=== PATIENT | female | born 1940 | race Caucasian/White ===

== ENCOUNTER 2016-11-02 08:54 | Observation (INO) | payer OTHER ==
[2016-11-02] MEDS ORDERED: MECLIZINE HCL 25 MG TAB PO ONE (09:41)
[2016-11-02] MEDS ORDERED: NS 1,000 ML IV ONE (09:41)
--- NOTE | 2016-11-02 09:43 | UCPHY ---
H & P Patient Type: Established Chief Complaint Nursing Narrative: Pt with 9 days of feeling bad. Had sinus drainage and went to walk in clinic after day 2 and placed on amoxicillin.Yook that for 3 days and had diarrhea stopped and still not feeling well . now has dizzy off balance feeling and decreased appetite. and nausea . Fell two days ago in [place] . Denies LOC . Time Seen by Provider: 11/02/16 09:26 HPI/ROS: CHIEF COMPLAINT: Feeling poorly, dizzy, fell HISTORY OF PRESENT ILLNESS: 75-year-old female presents reporting that 9 days ago she developed which she thought was a sinus infection. She had significant nasal drainage and headache. She saw a physician at urgent care was placed on amoxicillin. However, she developed abdominal upset and diarrhea. She stop taking the amoxicillin. Her symptoms have continued. She reported an episode of vertigo several days ago. She was seen at [facility] 2 days ago and diagnosed with a viral infection. She presents today reporting that she fell 2 days ago, the evening after being seen at [facility]. She struck her head. She reports feeling very dizzy, off balance, shaky, with moderate abdominal upset. Denies any chest pain or shortness of breath. Denies any palpitations. On no blood thinners. No loss of consciousness. reports she has been acting normally. No urinary complaints. REVIEW OF SYSTEMS: Aside from elements discussed in the HPI, a comprehensive 10-point review of systems was reviewed and is negative. PAST MEDICAL HISTORY: Hypertension, pre diabetes. GERD. SOCIAL HISTORY: Patient is . VITAL SIGNS Reviewed by me. GENERAL: Pleasant, elderly. Resting comfortably. Somewhat tearful. HEENT: Atraumatic. Eyes: No icterus, no injection. No tenderness to percussion over the sinuses. TMs are clear bilaterally. Mouth: moist mucous membranes. No erythema or lesions. Neck: supple with no adenopathy. LUNGS: Clear to auscultation bilaterally, no wheezes, rhonchi or rales. CARDIAC: Regular rate and rhythm, no rubs, murmurs or gallops. ABDOMEN: Soft, mild epigastric tenderness to deep palpation. No guarding or rebound. No distension. BACK: No CVA tenderness. EXTREMITIES: No trauma. No edema. Range of motion is normal throughout. NEURO: Alert and oriented, grossly nonfocal. SKIN: Warm and dry, no rash. PSYCHIATRIC: Normal mentation, no agitation. Source: Patient - Personal History Current Tetanus Diphtheria and Acellular Pertussis (TDAP): Yes - Medical/Surgical History Hx Asthma: No Hx Chronic Respiratory Disease: No Hx Diabetes: No Hx Cardiac Disease: Yes Hx Renal Disease: No Hx Cirrhosis: No Hx Alcoholism: No Hx HIV/AIDS: No Hx Splenectomy or Spleen Trauma: No Other PMH: TUBAL PREG X 2. C SECTIONs. PRE DIABETEIC. HTN. Hysterectomy - Family History Significant Family History: No pertinent family hx - Social History Smoking Status: Never smoked Constitutional: Initial Vital Signs Temperature (C) 37 C 11/02/16 09:21 Heart Rate 80 11/02/16 09:21 Respiratory Rate 16 11/02/16 09:21 Blood Pressure 156/75 H 11/02/16 09:21 O2 Sat (%) 98 11/02/16 09:21 O2 Delivery Mode Room Air Allergies/Adverse Reactions: Sulfa (Sulfonamide Antibiotics) Allergy (Verified 11/02/16 09:26) Home Medications: Medication Instructions Recorded Lisinopril/Hctz 20/12.5MG 1 ea PO DAILY 11/03/13 [Zestoretic/Prinzide 20/12.5MG (*)] Metoprolol Succinate Xr [Toprol Xl 25 mg PO DAILY 11/03/13 25 mg (*)] Simvastatin [Zocor] 20 mg PO HS 11/03/13 metFORMIN HCL [Metformin HCl ER] 1,000 mg PO DAILY 11/03/13 Ascorbic Acid [Vitamin C 500 mg 500 mg PO DAILY 11/02/16 (*)] Herbals/Supplements -Info Only 1 ea PO DAILY 11/02/16 LORazepam [Ativan (*)] 1 mg PO HS PRN 11/02/16 Multivitamins [Multivitamin (*)] 1 each PO DAILY 11/02/16 Pantoprazole Sodium [Protonix 40mg 40 mg PO DAILY 11/02/16 (*)] Medical Decision Making - Diagnostics EKG Interpretation: 12-LEAD EKG: Please see the full report in [facility]. My interpretation: Sinus rhythm, no ischemic changes Imaging: Imaging Impressions Chest X-Ray 11/02/16 09:41 Impression: No pneumonia. Head CT 11/02/16 09:41 Impression: 1. No acute intracranial findings. 2. Diffuse cerebral atrophy with scattered periventricular and subcortical low attenuation consistent with chronic microvascular ischemic gliosis. 3. Mild mucous membrane thickening in the sinuses without definite evidence of acute sinusitis. Findings discussed with Dulce Maria Banks 11/02/2016 at 10:22 hours. ED Course/Re-evaluation: 75-year-old female reporting dizziness, sinus congestion, and a syncopal episode after being ill with an upper respiratory infection for 9 days and developing diarrhea. Evaluation the emergency department is remarkable for sodium of 121 and chloride of 87. Renal functions are normal. EKG is nonischemic. Troponin is negative. Head CT demonstrates no intracranial hemorrhage. No signs significant sinus disease. Chest x-ray is negative. Patient's course was discussed with the hospitalist service. Patient will be admitted to [facility] bed, Dr. Torres admitting. Patient prefers to be transferred by POV. Her family understands the possibility of continued altered mental status and potential seizure EN route. They are comfortable taking her by POV. Patient was discharged to proceed directly to [facility]. She will be admitted to the 3rd floor where she has a bed a sign.. Differential Diagnosis: Differential diagnosis of the patient's dizziness was considered including but not limited to peripheral and central causes of vertigo, cardiac arrhythmias, cardiac ischemia, electrolyte disturbances, neurologic causes, orthostatic causes including dehydration, and blood loss. Consult/Admit Bed Type: Dr. Torres, [facility] - [facility] Laboratory Results: Laboratory Results 11/02/16 10:02 11/02/16 10:02 11/02/16 11/02/16 11/02/16 10:04 10:02 10:02 WBC 7.57 10^3/uL 10^3/uL (3.80-9.50) RBC 4.55 10^6/uL 10^6/uL (4.18-5.33) Hgb 13.5 g/dL g/dL (12.6-16.3) Hct 36.8 % L % (38.0-47.0) MCV 80.9 fL L fL (81.5-99.8) MCH 29.7 pg pg (27.9-34.1) MCHC 36.7 g/dL g/dL (32.4-36.7) RDW 12.1 % % (11.5-15.2) Plt Count 389 10^3/uL 10^3/uL (150-400) MPV 9.6 fL fL (8.7-11.7) Neut % (Auto) 72.9 % % (39.3-74.2) Lymph % (Auto) 19.4 % % (15.0-45.0) [place] % (Auto) 6.2 % % (4.5-13.0) Eos % (Auto) 0.8 % % (0.6-7.6) Baso % (Auto) 0.4 % % (0.3-1.7) Nucleat RBC Rel Count 0.0 % % (0.0-0.2) Absolute Neuts (auto) 5.52 10^3/uL 10^3/uL (1.70-6.50) Absolute Lymphs (auto) 1.47 10^3/uL 10^3/uL (1.00-3.00) Absolute Monos (auto) 0.47 10^3/uL 10^3/uL (0.30-0.80) Absolute Eos (auto) 0.06 10^3/uL 10^3/uL (0.03-0.40) Absolute Basos (auto) 0.03 10^3/uL 10^3/uL (0.02-0.10) Absolute Nucleated RBC 0.00 10^3/uL 10^3/uL (0-0.01) Immature Gran % 0.3 % % (0.0-1.1) Immature Gran # 0.02 10^3/uL 10^3/uL (0.00-0.10) Sodium 121 mEq/L L mEq/L (134-144) Potassium 3.6 mEq/L mEq/L (3.5-5.2) Chloride 84 mEq/L L mEq/L (97-110) Carbon Dioxide 23 mEq/l mEq/l (22-31) Anion Gap 14 mEq/L mEq/L (8-16) BUN 12 mg/dL mg/dL (7-23) Creatinine 0.7 mg/dL mg/dL (0.6-1.0) Estimated GFR > 60 Glucose 131 mg/dL H mg/dL (70-100) Calcium 9.4 mg/dL mg/dL (8.5-10.4) Troponin I < 0.012 ng/mL ng/mL (0-0.034) Medications Given: Discontinued Medications Sodium Chloride (Ns) 1,000 mls @ 0 mls/hr IV ONCE ONE PRN Reason: Wide Open Stop: 11/02/16 09:42 Last Admin: 11/02/16 10:02 Dose: 1,000 mls Meclizine HCl (Meclizine Hcl) 25 mg PO EDNOW ONE Stop: 11/02/16 09:42 Last Admin: 11/02/16 10:00 Dose: 25 mg Departure - Departure Disposition: [facility] In[facility] Acute Clinical Impression: Hyponatremia, Dizziness Syncope Qualifiers: Syncope type: unspecified Qualified Code(s): R55 - Syncope and collapse Condition: Fair - PQRS PQRS Measurement: 134: Depression screening and followup, PRIME MD-PHQ2 (12 years and older) Over the last 2 weeks, how often have you been bothered by any of the following problems? 1. Feeling down, depressed, or hopeless? 2. Little interest or pleasure in doing things? Patient answered no to both 1 and 2 130: Documentation of medications. Reviewed all patient medications, doses, route and frequency. 226: Do you smoke? No. 47: 65 and older: Advanced care planning. Patient designates surrogate decision maker as spouse. 51: 18 years old and older with diagnosis of COPD, spirometry performance. Patient has no history of COPD 52: 18 years old and older with COPD and symptoms of COPD or FEV1<60% predicted prescribed a B Agonist. Patient has no history of COPD
[2016-11-02 10:08] LABS: % IMMATURE GRANULYOCYTES 0.3 % (0.0-1.1); ABSOLUTE IMMATURE GRANULOCYTES 0.02 10^3/uL (0.00-0.10); ADD DIFF? NO; ADD MORPH? NO; ADD SCAN? NO; ATYPICAL LYMPHOCYTE FLAG 10 (0-99); FRAGMENT RBC FLAG 0 (0-99); HEMATOCRIT 36.8 % (38.0-47.0); HEMOGLOBIN 13.5 g/dL (12.6-16.3); LEFT SHIFT FLG 0 (0-99); LIPEMIA HEMOLYSIS FLAG 90 (0-99); MEAN CELL HEMOGLOBIN 29.7 pg (27.9-34.1); MEAN CELL HEMOGLOBIN CONCENTR. 36.7 g/dL (32.4-36.7); MEAN CELL VOLUME 80.9 fL (81.5-99.8); MEAN PLATELET VOLUME 9.6 fL (8.7-11.7); PLATELET CLUMPS FLAG 0 (0-99); PLATELET COUNT 389 10^3/uL (150-400); RED BLOOD CELL COUNT 4.55 10^6/uL (4.18-5.33); RED CELL DISTRIBUTION WIDTH 12.1 % (11.5-15.2)
[2016-11-02 10:22] LABS: ANION GAP 14 mEq/L (8-16); CALCIUM 9.4 mg/dL (8.5-10.4); CARBON DIOXIDE 23 mEq/l (22-31); CHLORIDE 84 mEq/L (97-110); CREATININE 0.7 mg/dL (0.6-1.0); GLOMERULAR FILTRATION RATE > 60; GLUCOSE 131 mg/dL (70-100); POTASSIUM 3.6 mEq/L (3.5-5.2); SODIUM 121 mEq/L (134-144)
--- NOTE | 2016-11-02 10:58 | CPEKG ---
Heart Rate: 77 RR Interval: 779 P-R Interval: 212 QRSD Interval: 90 QT Interval: 408 QTC Interval: 462 P Savage: 27 QRS Savage: 10 T Wave Savage: 38 EKG Severity - BORDERLINE ECG - EKG Impression: SINUS RHYTHM EKG Impression: ATRIAL PREMATURE COMPLEX EKG Impression: PROBABLE LEFT ATRIAL ABNORMALITY Electronically Signed By: Willian Moore 03-Nov-2016 12:47:44
[2016-11-02] MEDS: NS 1,000 ML IV SCH ×2 (11:15→20:14)
[2016-11-02] MEDS ORDERED: ONDANSETRON 4 MG/2 ML VIAL IVP PRN (14:13)
[2016-11-02] MEDS ORDERED: ACETAMINOPHEN 325 MG TAB PO PRN (14:13)
[2016-11-02] MEDS ORDERED: ALBUTEROL 3 ML DEYVIAL IH PRN (14:13)
[2016-11-02] MEDS ORDERED: ZOLPIDEM TARTRATE 5 MG TAB PO PRN (14:13)
[2016-11-02] MEDS ORDERED: ONDANSETRON DISINTEGRATING 4 MG TAB PO PRN (14:13)
--- NOTE | 2016-11-02 14:40 | GHP ---
[f rep st] HISTORY AND PHYSICAL DATE OF ADMISSION: 11/02/2016 CHIEF COMPLAINT: Weakness and hyponatremia. 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 Approximately 6 days PRIVACY ATTORNEY she [facility] and placed on a course of amoxicillin, which she took for 3 days and then developed diarrh ea with a loss of appetite. She stopped the amoxicillin, which then stopped the diarrhea for approx imately 2 days. Then one day PRIVACY ATTORNEY she had the return of diarrhea with 2-3 loose stools on the evenin g and day before admission. Throughout this time she has had a loss of appetite, and has only been drinking clear water and eating small amounts of food. The mucopurulent drainage seems to have reso lved regarding her sinuses, but she has continued to be weak. Two days PRIVACY ATTORNEY she had vertiginous symp toms with spinning and fell forward without a loss of consciousness. She grazed her head on the tea e of a cabinet and then hit the left side of her face on the floor. There was no loss of consciousn ess, as she called for her immediately to assist her. He found her weak and placed her back in bed. That incident was 2 days PRIVACY ATTORNEY. Since that time she has had no recurrence of that symptom, but she continues to be weak. She denies having any chest pain, shortness of breath, orthopnea, PND, or any sense of excessively r apid heartbeat or slow heartbeats. Additionally there has been no shortness of breath, although she does admit that during the time of the sinus infection she did have a cough which was also producti ve of mucopurulent material, but did not have shortness of breath or hemoptysis. The patient suffer s from a long history of GERD, for which she is on a PPI medication. There is no history of hepatit is, jaundice, nor any history of GI bleeding. PAST MEDICAL HISTORY: Denies asthma, allergies. She does have a history of hypertension and has be en prediabetic for many years. No history of renal disease. PAST SURGICAL HISTORY: She had two C-sections and a hysterectomy. ALLERGIES: To sulfa drugs. SOCIAL HISTORY: She is , lives with her in [place]. Tobacco, she has never smoke d. Alcohol is very rare. FAMILY HISTORY: There is no family history of early coronary artery disease. She has a sibling who has diabetes and heart disease, but that sibling is 7 years older than her. Her parents of ad vanced age. REVIEW OF SYSTEMS: A 10-point review of systems is negative except as noted above. Specific negati ves are she has no history of chronic kidney disease, recurrent bladder infection, joint disorders s kin disease, rashes, and no history of a DVT or pulmonary embolus. There is also no history of seiz ure disorder or neurologic disorder. PHYSICAL EXAMINATION: GENERAL: This is a pleasant alert female who appears at this time comfortabl e, and in no distress. VITAL SIGNS: Her initial blood pressure was elevated but has fallen to acce ptable ranges. Heart rate is normal, regular, and approximately 70 to 80. She has normal room air sat saturation. HEENT: Shows that there is an abrasion on the left upper forehead, with an area of raised contusion, without signs of infection. The left maxillary region is also tender and slightl y raised, consistent with a contusion. The nose shows no drainage. Tongue and buccal mucosa are no rmal and moist, without lesions. NECK: Supple without meningismus. LUNGS: Clear to P and A, with out wheezing or rales. HEART: Singular S1 and S2, no murmur, gallop, or rub. ABDOMEN: Normoactiv e bowel sounds to almost hyperactive at times. No masses, tenderness or organomegaly. EXTREMITIES: No edema, cyanosis, clubbing. Pulses 2+ overall. SKIN: Warm and dry. NEUROLOGIC: Oriented x3, calm female, cranial nerves 2-12 intact to specific testing. Gait was not tested. LABORATORY: CBC is normal. Chemistry panel shows a low sodium at 121, elevated anion gap at 14, an d a glucose slightly elevated at 131. Her troponin and calcium are normal. A CT scan of the head reviewed by myself shows no significant pathology, there is some evidence of a trophy and microvascular changes consistent with hypertension. There is also evidence of mucosal th ickening of the maxillary and ethmoid sinuses. A chest x-ray shows no active disease, normal size h eart. Both these scans were reviewed by myself on the PAC system and reviewed with Radiology. ASSESSMENT: 1. Acute hyponatremia secondary to diarrhea over the last 5 days, along with free water ingestion. The patient freely admits she has been drinking a large amount of free water, as she was told to do that by the physician who saw her in [place]. Plan here is we will rehydrate her with intraveno us fluids, and as soon as she is able to take fluids on her own place her on a full liquid diet and advance as tolerated. She is currently able to eat, although she has a reduced appetite. 2. Diarrhea, along with a history of gastroesophageal reflux disease for many years, treated with P PI medication. It is probable that the diarrhea occurred secondary to the use of amoxicillin, in a lady who has an already easily irritated upper gastrointestinal system with a history of gastroesoph ageal reflux disease. We will continue her PPI medication and place her on a full liquid diet, and advance as tolerated. 3. Episode of vertigo, along with falling with facial impact. She did give a history of any loss o f consciousness, and denies any history of possible cardiac rhythm disturbance. I believe she was s imply weak secondary to the acute illness, diarrhea and possible vagal symptomatology at the time, a lthough that cannot be confirmed. She has struck her face, but a CT scan is normal. We will simply treat, and use PT/OT to assist in regaining her strength and stability. Regarding physical therapy , it must be kept in mind that patient's gait is altered due to hyponatremia, and we will need good clearance from physical therapy in order for her to return home safely. 4. Hypertension. She is currently mildly hypertensive, and we will restart her home medications as appropriate. I do not want to restart diuretics, as she is currently hyponatremic. 5. Code status is full. 6. Deep venous thrombosis prophylaxis will be with early ambulation only. I believe the patient wi ll not be at bedrest for any longer than 24 hours. BILLING: The patient will be admitted to observation. I believe that we can correct some of the so dium within the next 24 hours and obtain clearance from PT, the patient may be able to be discharged . If we cannot obtain adequate clearance then she will have to be upgraded to a full inpatient bill ing. TIME: This admission required 55 minutes. /[id number]/MODL
[2016-11-02] MEDS ORDERED: LORazepam 1 MG TAB PO PRN (16:51)
[2016-11-02] MEDS: metFORMIN SR 500 MG TAB PO SCH (17:24)
[2016-11-02] MEDS: METOPROLOL SUCCINATE XR 25 MG TAB PO SCH (17:47)
[2016-11-02] MEDS ORDERED: PANTOPRAZOLE SODIUM 40 MG TAB PO ONE (19:00)
[2016-11-02 19:52] VITALS: RESP 16
[2016-11-03 05:23] LABS: ALANINE AMINOTRANSFERASE 33 IU/L (9-52); ALBUMIN 3.3 g/dL (3.5-5.0); ALKALINE PHOSPHATASE 62 IU/L (38-126); ANION GAP 5 mEq/L (8-16); ASPARTATE AMINOTRANSFERASE 19 IU/L (14-46); BILIRUBIN,TOTAL 0.8 mg/dL (0.1-1.4); CARBON DIOXIDE 24 mEq/l (22-31); CHLORIDE 102 mEq/L (97-110); CREATININE 0.8 mg/dL (0.6-1.0); GLOMERULAR FILTRATION RATE > 60; GLUCOSE 103 mg/dL (70-100); POTASSIUM 3.9 mEq/L (3.5-5.2); SODIUM 131 mEq/L (134-144); TOTAL PROTEIN 5.8 g/dL (6.3-8.2)
[2016-11-03] MEDS: METOPROLOL SUCCINATE XR 25 MG TAB PO SCH (08:26)
[2016-11-03] MEDS: metFORMIN SR 500 MG TAB PO SCH (08:27)
[2016-11-03] MEDS ORDERED: MULTIVITAMINS 1 EACH TAB PO SCH (09:00)
[2016-11-03] MEDS ORDERED: PANTOPRAZOLE SODIUM 40 MG TAB PO SCH (09:00)
[2016-11-03] MEDS: NS 1,000 ML IV SCH (09:09)
[2016-11-03 11:44] VITALS: BP 113/55; PULSE 74; TEMP 98.2; O2SAT 90
--- NOTE | 2016-11-03 13:33 | GDS ---
[f rep st] DISCHARGE SUMMARY KNOWN ACUTE DIAGNOSES: 1. Acute hyponatremia secondary to diarrhea and free water ingestion now resolved with a discharge sodium of 131. 2. Diarrhea secondary to gastroenteritis induced by antibiotics. 3. Acute sinusitis now improving and off antibiotics. 4. Persistent cough post treatment without signs of bronchospasm or hypoxemia presumed secondary to postnasal drip. 5. Hypertension in good control. CONSULTATION: None. PROCEDURES: None. 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 She became dizzy and weak. Had 1 fall without LOC as an outpatient. CT scan of the head was negative and she had no neurologic findings of significan ce. On admission, she was noted to have hyponatremia with a sodium of 121 treated with IV fluids an d increased to 131. PT evaluated and found that she was stable for discharge to home without assist ance. Her was in attendance and concurred. DISCHARGE MEDICATIONS: These will be the same as her admission medications without change. Medicat ions as follows: Zocor 20 mg daily, metoprolol succinate 25 mg daily, metformin 1000 mg daily, george nopril/HCTZ 20/12.5 mg tablet daily, Protonix 40 mg daily, herbal supplementation multivitamin daily , Lorazepam 1 mg p.o. at bedtime p.r.n., ascorbic acid 500 mg daily. I have suggested also a probiotic as an outpatient with 20 to 30 billion units in each capsule. PLAN: The patient is discharged to home in the accompaniment of her . Her condition is good . Diet is unrestricted in a normal texture. She has a followup with Dr. Maxim Gonzalez scheduled fo November 15, and I suggested that she keep that appointment. She also will follow up with Dr. Rodriguez on a p.r.n. basis, whom she has seen previously for gastroenterology. Matters to be addressed at the first followup: A recheck of the lady's pulmonary function and her c ough. Note that she did have some cough at the time of discharge although her lungs were clear and she had normal oxygenation on room air and was in no respiratory distress. I presume that the cough is secondary either to postnasal drip or to reflux. This should be evaluated as an outpatient. No te also that she is discharged not on any antibiotic. 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 The andres n has been discussed with the patient and with her , [place]. They have a confirmed appointment with Dr. Gonzalez on November 15. /[id number]/MODL
== END 2016-11-03 13:19 | disposition home or self-care (01) ==
LOC: CED 08:54 → CEDHOLD 10:58 → F3E 13:07
PROVIDERS: ADMIT Internal Medicine Pulmonary Disease; ATTEND Internal Medicine Pulmonary Disease
DX: K52.1 Toxic gastroenteritis and colitis (principal); E87.1 Hypo-osmolality and hyponatremia; J01.90 Acute sinusitis, unspecified; I10 Essential (primary) hypertension; K21.9 Gastro-esophageal reflux disease without esophagitis; W19.XXXA Unspecified fall, initial encounter
CPT/HCPCS: 70450; 71020; 93005; 96360; 96361; 97161; G0378; G0463; G8978; G8979; G8980; 80048-PO; 84484-PO; 85025-PO; 93010-PO; 99215-PO

== ENCOUNTER → 2016-12-24 | Outpatient (CLI) | payer OTHER | LOC: FIMAGING 09:23 | PROVIDERS: ATTEND Internal Medicine | DX: R51 Headache (principal) ==

== ENCOUNTER → 2017-03-16 | Outpatient (CLI) | payer OTHER | LOC: FIMAGING 09:01 | PROVIDERS: ATTEND Internal Medicine | DX: Z12.39 Encounter for other screening for malignant neoplasm of breast (principal); R92.2 Inconclusive mammogram ==

== ENCOUNTER 2018-07-28 06:44 | Emergency (ER) | payer OTHER ==
--- NOTE | 2018-07-28 07:40 | EDPHY ---
H & P Stated Complaint: llq pain x 2 days, denies n/v/d. Some pain with urination Time Seen by Provider: 07/28/18 06:57 HPI/ROS: This patient reports gradual onset of left lower quadrant pain over the past 48 hr. She describes the pain as achy in nature 6/10 intensity at baseline up to 8 /10 at times. The pain worsens with movement. It radiates to her back. She has never had this pain before. She reports loose stools last week that have since resolved to near normal consistency stools. No associated nausea or vomiting. No other associated belly symptoms currently. She came in with her by private vehicle for further evaluation of this complaint. Her last meal was last night. ROS: Constitutional: No fevers HEENT: Left maxillary sinus pain over the past week with yellow discharge occasional from her nose Pulmonary: She reports morning coughing productive of yellow sputum for 1 week that resolved 2 days prior to arrival Cardiovascular: No heart palpitations or lightheadedness. GI: No belly distention. No bloody stools. No dark tarry stools. No nausea or vomiting : No dysuria, frequency urgency Integumentary: No pallor or skin rash Neuro: No complaints 10 point review of symptoms is performed and otherwise negative with exception of pertinent positives and negatives listed in HPI and ROS Source: Patient Exam Limitations: No limitations - Medical/Surgical History Hx Asthma: No Hx Chronic Respiratory Disease: No Hx Diabetes: No Hx Cardiac Disease: Yes Hx Renal Disease: No Hx Cirrhosis: No Hx Alcoholism: No Hx HIV/AIDS: No Hx Splenectomy or Spleen Trauma: No Other PMH: TUBAL PREG X 2. C SECTIONs. PRE DIABETEIC. HTN. Hysterectomy - Family History Significant Family History: No pertinent family hx - Social History Smoking Status: Never smoked Alcohol Use: None Drug Use: None - Physical Exam Exam: General Appearance: Alert, no distress. Eyes: Pupils equal and round no pallor or injection. ENT, Mouth: Mucous membranes moist. Respiratory: There are no retractions, lungs are clear to auscultation. Cardiovascular: Regular rate and rhythm. Gastrointestinal: Hyperactive bowel sounds with moderate left lower quadrant tenderness with no guarding or rebound. Back: No CVA tenderness Neurological: GCS 15 with no focal deficits Skin: Warm and dry, no rashes. Musculoskeletal: Neck is supple nontender. Extremities are symmetrical, full range of motion. Psychiatric: Mood and affect normal DIFFERENTIAL DIAGNOSIS: After history and physical exam differential diagnosis was considered for diverticulitis, mesenteric adenitis, UTI, early bowel obstruction, cancer, constipation, IBS, food intolerance, viral illness Constitutional: Initial Vital Signs Temperature (C) 36.5 C 07/28/18 06:55 Heart Rate 84 07/28/18 06:55 Respiratory Rate 18 07/28/18 06:55 Blood Pressure 159/87 H 07/28/18 06:55 O2 Sat (%) 92 07/28/18 06:55 O2 Delivery Mode Room Air Allergies/Adverse Reactions: Sulfa (Sulfonamide Antibiotics) Allergy (Verified 07/28/18 06:46) Unknown Home Medications: Medication Instructions Recorded Lisinopril/Hctz 20/12.5MG 1 ea PO DAILY 11/03/13 [Zestoretic/Prinzide 20/12.5MG (*)] Metoprolol Succinate Xr [Toprol Xl 25 mg PO DAILY 11/03/13 25 mg (*)] Simvastatin [Zocor] 20 mg PO HS 11/03/13 metFORMIN HCL [Metformin HCl ER] 1,000 mg PO DAILY 11/03/13 Ascorbic Acid [Vitamin C 500 mg 500 mg PO DAILY 11/02/16 (*)] Herbals/Supplements -Info Only 1 ea PO DAILY 11/02/16 LORazepam [Ativan (*)] 1 mg PO HS PRN 11/02/16 Multivitamins [Multivitamin (*)] 1 each PO DAILY 11/02/16 Pantoprazole Sodium [Protonix 40mg 40 mg PO DAILY 11/02/16 (*)] Hyoscyamine Sulfate [Levsin, 0.125 - 0.25 mg SL Q6 PRN #20 tab 07/28/18 Hyomax-Sl 0.125 mg (*)] traMADol [Ultram 50 mg (*)] 50 - 100 mg PO Q4 PRN #8 tab 07/28/18 Medical Decision Making - Diagnostics Imaging Results: Imaging Impressions Abdomen CT 07/28/18 08:33 Impression: Mild perinephric stranding around both kidneys which could be from inflammation, acute or chronic. This was seen previously in 2010. There is no patchy abnormal enhancement of the kidneys to suggest pyelonephrosis and no evidence for hydronephrosis. No definite ureteral calculus with phleboliths seen in the pelvis. No evidence for diverticulitis. Results called and discussed with Ric Dubon MD on July 28, 2018 at 0931 hours. Imaging: Discussed imaging studies w/ synthetic resin operator Radiologist ED Course/Re-evaluation: IV , 500 cc normal saline bolus-after review of labs with slight elevation of creatinine from baseline 0.8-1.1-still within normal limits and plan to do an IV contrast CT study gave her an additional 500 cc normal saline bolus Patient is treated with Toradol 15 mg within complete relief of discomfort followed by morphine IV with improvement. This was followed by Levsin sublingual and time discharge patient was comfortable with 1 to 2/10 discomfort. Discussion: Patient with normal CBC, normal basic metabolic panel, urinalysis with 5 white cells on micro but no red cells, no bacteria negative nitrites signed UA and unremarkable CT abdomen pelvis with IV contrast that ruled out diverticulitis. I also do not see evidence of ureteral stones/hydro or inflammatory changes that would suggest acute pyelo. Counseled patient regarding this. Given increased bowel sounds suspect that she has a food intolerance, virus or IBS type presentation. Counseled patient regarding this will plan to treat her with Levsin, probiotics, Tylenol and if needed small number of tramadol for pain that prevents sleep. She understands need to return emergency department should she develop any worsening of symptoms despite treatment plan. - Data Points Laboratory Results: 07/28/18 07/28/18 07:28 07:24 POC Sodium 142 mEq/L mEq/L (135-145) POC Potassium 3.5 mEq/L mEq/L (3.3-5.0) POC Chloride 102.0 mEq/L mEq/L (97-110) POC Total CO2 27 mEq/L mEq/L (22-31) POC BUN 32 mg/dL H mg/dL (7-23) POC Creatinine 1.1 mg/dL H mg/dL (0.6-1.0) POC Glucose 134 mg/dL H mg/dL (70-100) POC Calcium 9.8 mg/dL mg/dL (8.5-10.4) Urine Color YELLOW Urine Appearance HAZY Urine pH 6.0 (5.0-7.5) Ur Specific [place] 1.029 (1.002-1.030) Urine Protein 1+ H (NEGATIVE) Urine Ketones NEGATIVE (NEGATIVE) Urine Blood NEGATIVE (NEGATIVE) Urine Nitrate NEGATIVE (NEGATIVE) Urine Bilirubin NEGATIVE (NEGATIVE) Urine Urobilinogen NEGATIVE EU EU (0.2-1.0) Ur Leukocyte Esterase 3+ H (NEGATIVE) Urine RBC 1-3 /hpf /hpf (0-3) Urine WBC 3-5 /hpf H /hpf (0-3) Ur Epithelial Cells TRACE /lpf /lpf (NONE-1+) Urine Mucus TRACE /lpf /lpf (NONE-1+) Urine Glucose NEGATIVE (NEGATIVE) Medications Given: Discontinued Medications Hyoscyamine Sulfate (Levsin, Hyomax-Sl) 0.125 mg PO EDNOW ONE Stop: 07/28/18 09:36 Last Admin: 07/28/18 09:42 Dose: 0.125 mg Sodium Chloride (Ns) 500 mls @ 1,000 mls/hr IV EDNOW ONE PRN Reason: Protocol Stop: 07/28/18 08:10 Last Admin: 07/28/18 07:47 Dose: 500 mls Sodium Chloride (Ns) 500 mls @ 1,000 mls/hr IV EDNOW ONE PRN Reason: Protocol Stop: 07/28/18 09:02 Last Admin: 07/28/18 08:36 Dose: 500 mls Ketorolac Tromethamine (Toradol) 15 mg IVP EDNOW ONE Stop: 07/28/18 07:49 Last Admin: 07/28/18 07:50 Dose: 15 mg Morphine Sulfate (Morphine) 4 mg IVP EDNOW ONE Stop: 07/28/18 08:17 Last Admin: 07/28/18 08:18 Dose: 4 mg Morphine Sulfate (Morphine) 4 mg IVP EDNOW ONE Stop: 07/28/18 08:39 Last Admin: 07/28/18 08:40 Dose: 4 mg Point of Care Test Results: CBC CBC Collection Date 07/28/18 CBC Collection Time 07:15 WBC 5.5 RBC 4.43 HGB 13.0 HCT 38.3 PLT 297 Neut # 3.4 Neut 62.8 LYMPH # 1.6 LYMPH 28.6 Other WBC # 0.5 Other WBC 8.6 MCV 86.5 Chemistry 07/28/18 07:24 POC Sodium 142 mEq/L mEq/L (135-145) POC Potassium 3.5 mEq/L mEq/L (3.3-5.0) POC Chloride 102.0 mEq/L mEq/L (97-110) POC Total CO2 27 mEq/L mEq/L (22-31) POC BUN 32 mg/dL H mg/dL (7-23) POC Creatinine 1.1 mg/dL H mg/dL (0.6-1.0) POC Glucose 134 mg/dL H mg/dL (70-100) POC Calcium 9.8 mg/dL mg/dL (8.5-10.4) Urine Dip Collection Date 07/28/18 Collection Time 07:00 Specific [place] (1.002-1.030) 1.020 PH (5.0-7.5) 7.0 Leukocytes (Negative) 1+ Nitrites (Negative) Negative Protein (Negative) 1+ Glucose (Negative) Negative Ketones (Negative) Trace Urobilnogen (0.2-1.0 EU) 0.2 Bilirubin (Negative) Negative Blood (Negative) Negative Departure - Departure Disposition: Home, Routine, Self-Care Clinical Impression: LLQ abdominal pain Condition: Good Instructions: Acute Abdominal Pain (ED) Additional Instructions: Diagnosis: Left lower quadrant crampy abdominal pain Your blood count today is normal. You're CT abdomen pelvis also appears normal. Plan: Light diet to feel improved Tylenol for pain and Levsin as needed. Tramadol in addition if needed for pain that prevents sleep. No driving, alcohol or work on tramadol. Follow-up with primary care physician for any ongoing symptoms despite treatment plan Return emergency department for any significant worsening of her symptoms despite the treatment plan. Prescriptions: Hyoscyamine Sulfate [Levsin, Hyomax-Sl 0.125 mg (*)] 0.125 - 0.25 mg SL Q6 PRN # 20 tab PRN Reason: abdominal cramping traMADol [Ultram 50 mg (*)] 50 - 100 mg PO Q4 PRN #8 tab PRN Reason: breakthrough pain
[2018-07-28] MEDS ORDERED: NS 500 ML IV ONE ×2 (07:41→08:33)
[2018-07-28] MEDS ORDERED: KETOROLAC 15 MG/1 ML SDV IVP ONE (07:48)
[2018-07-28] MEDS ORDERED: IOPAMIDOL (ISOVUE-300) 100 ML BTL ONE (08:43)
[2018-07-28] MEDS ORDERED: HYOSCYAMINE SULFATE 0.125 MG TAB PO ONE (09:35)
[2018-07-28 09:44] VITALS: BP 126/65
== END 2018-07-28 10:20 | disposition home or self-care (01) ==
LOC: CED 06:44
DX: R10.32 Left lower quadrant pain (principal); E86.9 Volume depletion, unspecified; I10 Essential (primary) hypertension
CPT/HCPCS: 74177; 96374; 96375; 96376; 99285; J1885; J2270; Q9967; 80048-ER

== ENCOUNTER → 2018-08-27 | Outpatient (CLI) | payer OTHER | LOC: FIMAGING 15:47 | PROVIDERS: ATTEND Internal Medicine | DX: M48.061 Spinal stenosis, lumbar region without neurogenic claudication (principal); M46.96 Unspecified inflammatory spondylopathy, lumbar region; M51.36 Other intervertebral disc degeneration, lumbar region; S32.030S Wedge compression fracture of third lumbar vertebra, sequela ==

== ENCOUNTER → 2019-01-02 | Outpatient (CLI) | payer OTHER | LOC: BHFA 11:30 ==